=== PATIENT | female | born 1945 | race Two or more races ===

== ENCOUNTER 2019-02-22 11:50 | Emergency (ER) | payer MEDICARE, MEDICAID ==
[~2019-02-22] VITALS: Ht 165.1 cm; Wt 81.6 kg
[2019-02-22] MEDS ORDERED: LOSARTAN POTAS100 MG ORAL (12:15)
--- NOTE | 2019-02-22 12:20 | NUR ---
ED Nurse Note: Patient brought into ED with daughter patient reports tripped and fell on the street. patient reports pain on the right arm/ left leg/ right shoulder. a/o x4, ambulatory.
[2019-02-22] MEDS ORDERED: Acetaminophen 500mg (ES) tab ORAL ONE (12:45)
--- NOTE | 2019-02-22 14:10 | Emergency Room Report ---
History of Present Illness General Chief Complaint: Multiple Trauma/Fall Source: Patient (Ruy Mcgovern) Present Illness HPI 73-year-old female with no significant past medical history other than hypertension currently controlled blood pressure medication denying any chest pain dizziness headache vision changes ER today with elevated high blood pressure here complaining of some pain in the right shoulder and 3 out of 10 pain and left knee after falling this morning. Denies head injury, dizziness, and all other injuries. Patient is rating the pain and right elbow to have 10 with radiation denying any tingling numbness and is in distress holding her right arm across her chest. Patient has full range of motion of the left knee and has minimal bruising on the left denies all other injuries associated symptoms has not taken any medications (Ruy Mcgovern) Allergies: Coded Allergies: AMPICILLIN (Verified Allergy, Unknown, 02/22/19) Patient History Past Medical History: see triage record Past Surgical History: none Pertinent Family History: none Immunizations: UTD Reviewed Nursing Documentation: PMH: Agreed; PSxH: Agreed (Ruy Mcgovern) Nursing Documentation-PMH Past Medical History: No History, Except For Hx Hypertension: Yes (Ruy Mcgovern) Review of Systems All Other Systems: negative except mentioned in HPI (Ruy Mcgovern) Physical Exam Vital Signs Date Time Temp Pulse Resp B/P (MAP) Pulse Ox O2 Delivery O2 Flow Rate FiO2 02/22/19 12:12 97.7 83 20 190/81 96 Room Air Sp02 EP Interpretation: reviewed General Appearance: mild distress Head: normocephalic, atraumatic Eyes: bilateral eye normal inspection, bilateral eye PERRL ENT: normal ENT inspection, normal pharynx Neck: normal inspection, full range of motion, supple Respiratory: normal inspection, chest non-tender, no rhonchi Cardiovascular #1: normal inspection, regular rate, rhythm, no edema, no murmur Cardiovascular #2: 2+ radial (R), 2+ radial (L) Gastrointestinal: normal inspection, soft Musculoskeletal: back normal, no calf tenderness, swelling - right shoulder, other - Left knee bruis Neurologic: normal inspection, alert, oriented x3 Psychiatric: normal inspection, judgement/insight normal Skin: normal inspection, warm/dry Lymphatic: normal inspection (Ruy Mcgovern) Medical Decision Making PA Attestation All diagnoses and treatment plans were reviewed and discussed with my supervising physician (Ruy Mcgovern) Diagnostic Impression: Primary Impression: Right humeral fracture ER Course 73-year-old female with no significant past medical history other than hypertension currently controlled blood pressure medication denying any chest pain dizziness headache vision changes ER today with elevated high blood pressure here complaining of some pain in the right shoulder and 3 out of 10 pain and left knee after falling this morning. Denies head injury, dizziness, and all other injuries. Patient is rating the pain and right elbow to have 10 with radiation denying any tingling numbness and is in distress holding her right arm across her chest. Patient has full range of motion of the left knee and has minimal bruising on the left denies all other injuries associated symptoms has not taken any medications Ddx considered but are not limited to right shoulder fx, shoulder sprain, elbow fx, knee contusion Vital signs: are WNL, pt. is afebrile H&PE are most consistent with right soulder displaced fx, knee contusion ORDERS: naproxen, sling ED INTERVENTIONS: arm sling due to location of fx, femoral neck cant do splinting, pt has apt with ortho DISCHARGE: At this time pt. is stable for d/c to home. Will provide printed patient care instructions, and any necessary prescriptions. Care plan and follow up instructions have been discussed with the patient prior to discharge. if numbness, bluish discoloration of arm return to ER (Ruy Mcgovern) Other X-Ray Diagnostic Results Other X-Ray Diagnostic Results : X-Ray ordered: right shoulder and elbow # of Views/Limited Vs Complete: 3 View Indication: Swelling EP Interpretation: Yes PA Xray: Interpretation reviewed, by supervising MD, and agrees with findings. Interpretation: no dislocation, other - fx of right femorla neck Impression: Other - right femoral neck fx Electronically Signed by: ruy means PA-C (Ruy Mcgovern) Other X-Ray Diagnostic Results : Electronically Signed by: Marcos A documentation of Xray reviewed by me and is accurate, Soham Vasques MD (Soham Vasques MD) Last Vital Signs Date Time Temp Pulse Resp B/P (MAP) Pulse Ox O2 Delivery O2 Flow Rate FiO2 02/22/19 12:12 97.7 83 20 190/81 96 Room Air (Ruy Mcgovern) Disposition: HOME, SELF-CARE Condition: Stable Scripts Naproxen* (NAPROXEN*) 500 Mg Tablet 500 MG ORAL TWICE A DAY, #30 TAB Prov: Ruy Mcgovern 02/22/19 Patient Instructions: Shoulder Fracture Additional Instructions: follow up with ortho tomorrow. if numbness or change of color in hand return to ER. keep sling on Ruy Mcgovern Feb 22, 2019 14:10 Soham Vasques MD Feb 23, 2019 23:01
[2019-02-22] MEDS ORDERED: NAPROXEN500 M2 ORAL (14:12)
--- NOTE | 2019-02-22 14:18 | NUR ---
ER DISCHARGE NOTE: Patient is cleared to be discharged per ERMD, pt is aox4, on room air, with stable vital signs. pt was given dc and prescription instructions, pt was able to verbalize understanding, pt id band removed without complications. pt is able to ambulate with steady gait. pt took all belongings.
[2019-02-22 14:25] VITALS: BP 190/81
== END 2019-02-22 14:18 | disposition home or self-care (01) ==
LOC: EMR 12:48
DX: S42.301A Unspecified fracture of shaft of humerus, right arm, initial encounter for closed fracture (principal); X58.XXXA Exposure to other specified factors, initial encounter; Y92.9 Unspecified place or not applicable; Z88.0 Allergy status to penicillin; I10 Essential (primary) hypertension
CPT/HCPCS: 99283